=== PATIENT | female | born 1950 | race Caucasian/White ===

== ENCOUNTER 2017-07-25 16:41 | Emergency (ER) | payer OTHER ==
[~2017-07-25] VITALS: Ht 175.3 cm; Wt 68.3 kg
[~2017-07-25 16:41] MED LIST: ADIPEX-P37.5 MG PO; CONZIP100 MG PO; FLEXERIL10 MG PO; LAMICTAL150 M1 PO; MEGA BIOTIN10000 MCG PO; NEURONTIN400 MG PO; NEXIUM40 MG PO; PREMARIN0.3 MG PO; PROAIR HFA8.5 GM IH; SIMVASTATIN20 MG PO; SINGULAIR10 MG PO; TRAZODONE HCL50 MG PO; VALIUM5 MG PO; WELLBUTRIN SR200 MG PO; XANAX0.5 MG PO
[2017-07-25 17:19] LABS: HEMATOCRIT 41.8 % (36.0-46.0); HEMOGLOBIN 13.9 G/DL (11.9-15.5); MCH 30.2 PG (29.0-34.0); MCHC 33.3 G/DL (30.0-36.0); MCV 90.9 FL (83-99); PLATELET COUNT 300 K/uL (156-360); RBC DIS.WIDTH-CV 14.4 % (11.8-14.6); RBC DIS.WIDTH-SD 47.8 % (39-53)
[2017-07-25 17:24] LABS: APPEARANCE SL.HAZY ((CLEAR)); BILIRUBIN NEGATIVE; BLOOD NEGATIVE; COLOR AMBER ((YELLOW)); GLUCOSE (STRIP) NEGATIVE; KETONES NEGATIVE; LEUKOCYTES TRACE; NITRITE NEGATIVE; PROTEIN (STRIP) 100; SPECIFIC GRAVITY 1.028 (1.000-1.030)
[2017-07-25 17:26] LABS: ALBUMIN 4.4 g/dL (3.2-4.8); CHLORIDE 101 mEq/L (99-109); POTASSIUM 3.7 mEq/L (3.7-5.4); SODIUM 143 mEq/L (136-147)
[2017-07-25 17:28] LABS: GLUCOSE 101 mg/dL (70-99)
[2017-07-25 17:29] LABS: TOTAL PROTEIN 7.6 g/dL (6.4-8.3)
[2017-07-25 17:30] LABS: TOTAL BILIRUBIN 0.2 mg/dL (0.0-1.0)
[2017-07-25 17:32] LABS: ALKALINE PHOSPHATASE 140 IU/L (3-129); CREATININE 0.8 mg/dL (0.6-1.3); GFR ESTIMATE (CALCULATED) > 59 mL/min/
[2017-07-25 17:33] LABS: UREA NITROGEN (BUN) 11 mg/dL (9-23)
[2017-07-25 17:34] LABS: AST (GOT) 13 IU/L (2-34)
[2017-07-25 17:35] LABS: ALT (GPT) 15 IU/L (3-49)
[2017-07-25 17:36] LABS: LIPASE 15 U/L (1.0-51.0)
[2017-07-25 17:37] LABS: BACTERIA RARE /HPF; CALCIUM OXALATE CRYSTALS 2+ /HPF; EPITHELIAL CELLS 1+ /HPF; HYALINE CASTS 0-5 /LPF; MUCUS 3+ /LPF; RED BLOOD CELLS 0-5 /HPF (0-5); UCUL ADDED? YES; WHITE BLOOD CELLS 20-30 /HPF (0-5)
[2017-07-25] MEDS ORDERED: MOBIC7.5 MG PO (19:40)
[2017-07-25] MEDS ORDERED: PHENERGAN25 MG PR (19:40)
[2017-07-25] MEDS ORDERED: PROMETHAZINE HC25 M1 PO (19:40)
[2017-07-25] MEDS ORDERED: FLOMAX0.4 MG PO (19:40)
[2017-07-25] MEDS ORDERED: KEFLEX500 MG PO (19:43)
[2017-07-25 20:03] VITALS: BP 139/100
== END 2017-07-25 20:04 | disposition home or self-care (01) ==
LOC: EME 16:41
DX: N13.2 Hydronephrosis with renal and ureteral calculous obstruction (principal); J44.9 Chronic obstructive pulmonary disease, unspecified; F32.9 Major depressive disorder, single episode, unspecified; F17.200 Nicotine dependence, unspecified, uncomplicated; Z88.1 Allergy status to other antibiotic agents; Z88.6 Allergy status to analgesic agent
CPT/HCPCS: 74176; 80053; 81003; 83690; 85027; 87086; 99281; 99284; J1885

== ENCOUNTER 2017-08-10 11:04 | Day surgery (SDC) | payer OTHER ==
[~2017-08-10] VITALS: Ht 175.3 cm; Wt 68.9 kg
[~2017-08-10 11:04] MED LIST changes: +BUPROPION HCL200 M1 PO; +CALCIUM + D3 E1 EACH PO; +CYANOCOBAL1000 MCG/2 IM; +FLOMAX0.4 MG PO; +HYDROCODON-ACE1 EAC7 PO; +KEFLEX500 MG PO; +MOBIC7.5 MG PO; +MULTIPLE VITAM1 EACH PO; +PHENERGAN25 MG PR; +PROMETHAZINE HC25 M1 PO; +REMERON45 MG PO; +VITAMIN B-12 51 EACH SL; +VITAMIN D32000 UNI1 PO; +ZOCOR20 MG PO
[2017-08-10 11:56] VITALS: BP 142/80
[2017-08-10 17:15] VITALS: BP 163/71
[2017-08-10 18:22] VITALS: BP 165/73
== END 2017-08-10 18:30 | disposition home or self-care (01) ==
LOC: SDC 11:04
DX: N13.2 Hydronephrosis with renal and ureteral calculous obstruction (principal); J44.9 Chronic obstructive pulmonary disease, unspecified; K21.9 Gastro-esophageal reflux disease without esophagitis; Z88.6 Allergy status to analgesic agent; Z88.1 Allergy status to other antibiotic agents
CPT/HCPCS: 74420; 93005; C2625; J0330; J0690; J1170; J1885; J3010